=== PATIENT | female | born 1940 | race Caucasian/White ===

== ENCOUNTER 2020-05-11 11:29 | Emergency (ER) | payer MEDICARE, SELFPAY ==
[2020-05-11] VITALS (11 sets, daily range): BP systolic 125–159; BP diastolic 66–91; PULSE 71–163; RESP 12–28; O2SAT 99–100
--- NOTE | ~2020-05-11 | XR_ITS ---
EXAMINATION: XR chest 2V DATE: 05/11/2020 12:56 INDICATION: Palpitations TECHNIQUE: PA and lateral views of the chest were obtained. COMPARISON: None FINDINGS: The lungs are well-expanded and clear with no focal airspace opacities, pulmonary edema, pleural effu myke or pneumothorax. The cardiomediastinal silhouette is normal. Mild thoracic levocurvature with mi ld spondylosis. IMPRESSION: 1. No acute cardiopulmonary disease. Reviewed, dictated and finalized at location A. LLITE DISH TECHNICIAN
--- NOTE | 2020-05-11 11:32 | ED.ARRPALP ---
HPI - Arrhythmia/Palpitations General Chief Complaint: Arrhythmia/Palpitations Stated Complaint: rapid heartbeat Time Seen by Provider: 05/11/20 11:32 Source: patient Mode of arrival: wheelchair Limitations: no limitations History of Present Illness HPI narrative: Patient is a 79-year-old female who presents for evaluation of palpitations. Patient states palpitations started approximately 40 minutes prior to arrival. She was in the garage coming into the hospital he began. 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 She denies any chest pain, shortness of breath. No recent illnesses. No nausea or vomiting. Related Data Home Medications Medication Instructions Recorded Confirmed fluticasone propionate INTRANASAL 05/11/20 levothyroxine 05/11/20 simvastatin mg 05/11/20 Allergies Allergy/AdvReac Type Severity Reaction Status Date / Time erythromycin base Allergy Mild Abdominal Verified 05/11/20 11:37 Pain Review of Systems Review of Systems: Narrative: CONSTITUTIONAL: Denies fever, chills, or sweats. ENT: Denies rhinorrhea, congestion, sore throat, or otalgia. CARDIOVASCULAR: Denies chest pain, reports palpitations, no leg edema RESPIRATORY: Denies cough or dyspnea. GASTROINTESTINAL: Denies abdominal pain, nausea, vomiting, or diarrhea. GENITOURINARY: Denies dysuria or hematuria. SKIN: Denies rash or itching. MUSCULOSKELETAL: Denies back pain, joint pain, or myalgia. NEUROLOGIC: Denies headache, numbness, or weakness. [facility] Past Medical History Medical History Ataxia Hyperlipidemia Hypothyroidism Surgical History Surgical History (Updated 05/11/20 @ 12:03 by Rabia Valente MD) H/O: hysterectomy Social History Social History Gender identity (if verbalized by the patient): Female Exam Narrative: Exam Narrative: GENERAL: Awake, alert, conversant HEAD: Normocephalic, atraumatic. EYES: PERRLA and EOMI. ENT: Nares clear, no rhinorrhea or epistaxis. Mucous membranes moist. NECK: Supple. CHEST: No respiratory distress, breathing even and non labored HEART: Tachycardic rate, regular rhythm ABDOMEN:Non distended, non tender EXTREMITIES: Normal range of motion. No edema. SKIN: Warm, dry, no rash. NEURO:No focal deficits. Alert and oriented x3 Course Vital Signs Vital signs: Vital Signs Pulse Rate 157 H 05/11/20 11:34 Respiratory Rate 22 H 05/11/20 11:34 Blood Pressure 159/91 H 05/11/20 11:34 Pulse Oximetry 99 05/11/20 11:34 Pulse Rate 74 05/11/20 13:16 Respiratory Rate 14 05/11/20 13:16 Blood Pressure 125/66 05/11/20 13:16 Pulse Oximetry 100 05/11/20 13:16 MDM - Arrhythmia/Palpitations MDM Narrative Medical decision making narrative: Patient presented to the emergency department for evaluation of palpitations. At the time of assessment, patient is awake, alert and oriented with a narrow complex tachycardia, concerning for either SVT versus atrial flutter however rate is not truly fast enough to be consistent with typical SVT. No evidence of irregularly irregular rate, making atrial fibrillation less likely. Not consistent with sinus tachycardia. Patient converted prior to any medication to be administered to her. She had no concurrent chest pain or shortness of breath. No hypotension. No electrolyte derangement. No evidence of hypo or hyperthyroidism. No recurrent palpitations or arrhythmias in the ER. Spoke with on-call video production coordinator who recommended patient be placed on a daily aspirin as well as metoprolol succinate once daily with close follow-up in their office. Differential Diagnosis Differential diagnosis: Likely palpitations, artial fibrillation, artial flutter, ventricular premature beats, supraventricular tachycardia and ventricular tachycardia Medical Records Attestation: I reviewed the patient's medica
--- NOTE | 2020-05-11 12:11 | ECG_ITS ---
Measurements Intervals [place] Rate: 87 P: 86 IN: 146 QRS: 83 QRSD: 101 T: 45 QT: 352 QTc: 424 Interpretive Statements SINUS RHYTHM INCOMPLETE RIGHT BUNDLE BRANCH BLOCK BORDERLINE ECG Electronically Signed On 05-11-2020 16:34:11 EDUCATIONAL CONSULTANT by Gary Lowery D.O.
--- NOTE | 2020-05-11 12:11 | ECG_ITS ---
Measurements Intervals [place] Rate: 156 P: CO: 0 QRS: 78 QRSD: 107 T: -3 QT: 263 QTc: 424 Interpretive Statements ATRIAL FLUTTER/TACHYCARDIA WITH RAPID VENTRICULAR RESPONSE INCOMPLETE RIGHT BUNDLE BRANCH BLOCK BORDERLINE ST-T WAVE ABNORMALITY- ANTEROLAT/INF LEADS ABNORMAL ECG Electronically Signed On 05-11-2020 16:32:51 AMMONIA SOLUTION PREPARER by Gary Lowery D.O.
[2020-05-11 12:19] LABS: Basophils Absolute Auto 0.1 K/mm3 (0.0-0.1); Eosinophils Absolute Auto 0.2 K/mm3 (0-0.3); Eosinophils Percent Auto 3.2 % (0-4.4); Hematocrit 39.5 % (37.0-47.0); Hemoglobin 13.1 g/dL (12.0-15.0); Immature Granulocyte Absolute 0.01 K/mm3 (0.00-0.031); Immature Granulocyte Percent A 0.1 % (0-0.5); Lymphocytes Absolute Auto 2.26 K/mm3 (0.9-3.2); Lymphocytes Percent Auto 32.8 % (18.3-44.2); Mean Corpuscular HGB Conc 33.2 g/dl (32-36); Mean Corpuscular Volume 93.6 fl (80-100); Mean Platelet Volume 10.6 fl (7.4-10.4); Monocytes Absolute Auto 0.7 K/mm3 (0.1-0.6); Monocytes Percent Auto 9.4 % (2.6-8.5); Neutrophils Absolute Auto 3.7 K/mm3 (1.3-6.7); Neutrophils Percent Auto 53.5 % (45.5-73.1); Platelet Count Result 300 k/mm3 (150-375); Red Blood Count 4.22 M/mm3 (4.2-5.4); Red Cell Distribution Width 12.6 % (11.5-14.5); White Blood Count 6.9 K/mm3 (4.5-10.0)
[2020-05-11] MEDS: SODIUM CHLORIDE 0.9% IV 1,000 ML 999 ML IV CONT (12:26)
--- NOTE | 2020-05-11 12:30 | PC.NURSE ---
IVF initiated and preparing to give the patient cardiazem when note the patient has converted to NSR vis monitor. Dr. Valente aware, holding cardiazem.
[2020-05-11 12:34] LABS: Alanine Aminotransferase 24 U/L (4-35); Albumin Level 4.5 g/dL (3.5-5.1); Alkaline Phosphatase 107 U/L (38-126); Anion Gap 9 mmol/L (8-16); Aspartate Amino Transferase 34 U/L (14-36); Bilirubin,Total 0.6 mg/dL (0.2-1.3); Blood Urea Nitrogen 20 mg/dL (7-17); Carbon Dioxide 30 mmol/L (22-30); Chloride 102 mmol/L (98-107); Estimated CRCL calculation 43 ml/min; Estimated Glomerular Filt Rate > 60; Glucose 113 mg/dL (65-105); Potassium 3.8 mmol/L (3.4-5.0); Sodium 141 mmol/L (137-145)
[2020-05-11 13:02] LABS: Thyroid Stimulating Hormone 0.796 uIU/mL (0.465-4.680)
--- NOTE | 2020-05-11 14:37 | PC.NURSE ---
Pt ambulatory to exit with own walker and assisted into car.
== END 2020-05-11 14:40 | disposition home or self-care (01) ==
PROVIDERS: Emergency Provider Emergency Medicine; PCP Internal Medicine Endocrinology, Diabetes & Metabolism
DX: R00.2 Palpitations (principal); E78.5 Hyperlipidemia, unspecified; E03.9 Hypothyroidism, unspecified; I45.10 Unspecified right bundle-branch block; I48.92 Unspecified atrial flutter; R00.0 Tachycardia, unspecified
CPT/HCPCS: 36415; 71046; 80053; 84443; 85025; 93005; 99283; J0153; J7030

== ENCOUNTER 2020-09-22 11:22 | Outpatient (CLI) | payer MEDICARE, SELFPAY ==
--- NOTE | ~2020-09-22 | XR_ITS ---
EXAMINATION: XR knee RT 3V DATE: 09/22/2020 11:42 INDICATION: Right knee pain. TECHNIQUE: 3 views of right knee were obtained. COMPARISON: None. FINDINGS: Bone alignment is normal. No fracture. There is mild osteoarthritis of lateral and patellof emoral compartments characterized by tiny marginal osteophytes. There is a small knee joint effusion. IMPRESSION: 1. Mild right knee osteoarthritis. 2. Small right knee joint effusion. Reviewed, dictated and finalized at location B.
== END 2020-09-22 11:23 | disposition home or self-care (01) ==
DX: M17.11 Unilateral primary osteoarthritis, right knee (principal); M25.461 Effusion, right knee
CPT/HCPCS: 73562

== ENCOUNTER 2025-04-18 15:36 | Inpatient (IN) | payer MEDICARE, SELFPAY ==
--- NOTE | ~2025-04-18 | XR_ITS ---
EXAMINATION: XR abdomen/kub 1V, 04/19/2025 11:20 [employer] MANAGER HISTORY: Ileus vs SBO COMPARISON: No comparisons available. Technique: 3 view. Findings: There are dilated loops of small bowel the largest measuring 4 cm with diminished. Throughout the large bowel. No free air. No abnormal calcifications No acute osseous abnormality. Impression: 1. Ileus versus small bowel obstruction. Small bowel obstruction is favored. Reviewed, dictated and finalized at location P. R CANE FARM MANAGER Impression: 1. Ileus versus small bowel obstruction. Small bowel obstruction is favored.
--- NOTE | ~2025-04-18 | CT_ITS ---
EXAMINATION: CT abdomen pelvis w con DATE: 04/18/2025 18:33 INDICATION: Abdominal pain, nausea and vomiting. TECHNIQUE: Computed tomography (CT) of the abdomen and pelvis was performed 100 cc intravenous contrast. Automated exposure control and iterative reconstruction technique were employed. The dose-length product was 199.52 mGy-cm. COMPARISON: None. FINDINGS: Lung bases do not show acute findings. No focal lesions of liver and spleen. The gallbladder shows no acute findings. Pancreas shows no acute findings. Kidneys do not show calculi are obstruction. Moderate calcific atherosclerotic changes of superior mesenteric artery. Dilated loops of small bowel are noted measuring 3.5 cm in diameter with fluid levels suggestive of moderate mechanical small bowel obstruction. Thickening of the wall of the cecum and proximal colon are noted. Appendix is not distinctly visible. No free fluid or free air. No evidence of herniations. Distended urinary bladder. IMPRESSION: 1. Moderately dilated loops of small bowel suggesting evidence of mechanical small bowel obstruction. 2. Mild thickening of the wall of the proximal colon and cecum of indeterminate nature. Correlation with colonoscopy is suggested. 3. Distended urinary bladder. Reviewed, dictated and finalized at location T. O COORDINATOR IMPRESSION: 1. Moderately dilated loops of small bowel suggesting evidence of mechanical sm all bowel obstruction. 2. Mild thickening of the wall of the proximal colon and cecum of indeterminate nature. Correlation with colonoscopy is suggested. 3. Distended urinary bladder.
[2025-04-18 16:05] VITALS: BP 117/67; PULSE 78; RESP 16; TEMP 36.6; O2SAT 96
--- NOTE | 2025-04-18 17:27 | ED_ITS ---
HPI - General Adult General Chief complaint: Nausea/Vomiting/Diarrhea <LAURA Watson - Last Filed: 04/18/25 17:32> Stated complaint: diarrhea sin Friday, lower abd mass <LAURA Watson - Last Filed: 04/18/25 17:32> Time Seen by Provider: 04/18/25 18:59 <LAURA Watson - Last Filed: 04/18/25 17:32> Focused HPI: 84 year old female presenting with concerns for vomiting and diarrhea since Friday as well as intermittent abdominal pain. Reports ongoing issues with constipation. Denies fevers/chills, chest pain/shortness of breath, urinary concerns, melena/hematochezia, or hematemesis. GENERAL: No acute distress. HEAD: Normocephalic, atraumatic. CHEST: Clear to auscultation. ?No respiratory distress. HEART: Regular rate and rhythm.? NEURO: ?Alert and oriented x3. Patient screened in triage and initial orders placed.? ?Additional care and disposition to be based upon?diagnostic testing and treatment. <LAURA Watson - Last Filed: 04/18/25 17:32> History of Present Illness HPI narrative: agree with HPI <Alicia Cameron MD - Last Filed: 04/18/25 21:11> Related Data Home medications: Home Medications ?Medication ?Instructions ?Recorded ?Confirmed ?Last Taken ?Type fluticasone propionate 50 intranasal 05/11/20 Unknown History mcg/actuation nasal spray,suspension levothyroxine 88 mcg tablet 05/11/20 Unknown History simvastatin 40 mg tablet mg 05/11/20 Unknown History <LAURA Watson - Last Filed: 04/18/25 17:32> Allergies/adverse reactions: Allergies Allergy/AdvReac Type Severity Reaction Status Date / Time erythromycin base Allergy Mild Abdominal Verified 05/11/20 11:37 Pain <LAURA Watson - Last Filed: 04/18/25 17:32> Review of Systems 2 Review of Systems: All systems reviewed & are unremarkable except as noted in HPI and below <Alicia Cameron MD - Last Filed: 04/18/25 21:11> PMF[facility] Past Medical History Medical History: Medical History Ataxia Hyperlipidemia Hypothyroidism <LAURA Watson - Last Filed: 04/18/25 17:32> Surgical History Surgical History: Surgical History (Updated 05/11/20 @ 12:03 by Rabia Valente MD) H/O: hysterectomy <LAURA Watson - Last Filed: 04/18/25 17:32> Social History Social History: Social History Gender identity (if verbalized by the patient): Female <LAURA Watson - Last Filed: 04/18/25 17:32> Exam 2 Narrative: EXAMINATION OF ORGAN SYSTEMS/BODY AREAS: Constitutional: Vital signs per nursing GENERAL:[No acute distress, non-toxic appearing.] HEAD: Normal with no signs of head trauma. EYES: EOMI, conjunctiva normal ENT: Hearing grossly intact LUNGS: Nonlabored breathing. HEART: [Regular rate and rhythm] ABD: [Soft], [nontender to palpation] EXT: Normal range of motion SKIN: [No rashes or lesions.] NEURO: [Alert. No gross focal sensory or strength deficits.] PSYCH: Normal affect <Alicia Cameron MD - Last Filed: 04/18/25 21:11> Course Vital Signs Vital signs: Vital Signs Temperature 97.9 F 04/18/25 16:05 Pulse Rate 78 04/18/25 16:05 Respiratory Rate 16 04/18/25 16:05 Blood Pressure 117/67 04/18/25 16:05 Pulse Oximetry 96 04/18/25 16:05 Oxygen Delivery Room Air 04/18/25 16:05 Temperature 97.8 F 04/18/25 19:53 Pulse Rate 66 04/18/25 20:59 Respiratory Rate 16 04/18/25 20:59 Blood Pressure 122/69 04/18/25 20:59 Pulse Oximetry 100 04/18/25 20:59 Oxygen Delivery Room Air 04/18/25 19:47 <LAURA Watson - Last Filed: 04/18/25 17:32> Vital Signs Temperature 97.9 F 04/18/25 16:05 Pulse Rate 78 04/18/25 16:05 Respiratory Rate 16 04/18/25 16:05 Blood Pressure 117/67 04/18/25 16:05 Pulse Oximetry 96 04/18/25 16:05 Oxygen Delivery Room Air 04/18/25 16:05 Temperature 97.8 F 04/18/25 19:53 Pulse Rate 66 04/18/25 20:59 Respiratory Rate 16 04/18/25 20:59 Blood Pressure 122/69 04/18/25 20:59 Pulse Oximetry 100 04/18/25 20:59 Oxygen Delivery Room Air 04/18/25 19:47 <Alicia Cameron MD - Last Filed: 04/18/25 21:11> [facility] MDM Narrative Medical decision making narrative: Electronic medical record was reviewed. Patient presented to the ED with complaint of [abdominal pain and vomiting with intermittent constipation and diarrhea]. Vitals [were within acceptable limits]. Physical exam revealed soft abdomen without significant tenderness. [IV access was established by nursing staff]. CBC, BMP, lipase, LFTs, bilirubin and alk phos were obtained. Labs were pertinent for labs within baseline limits for patient. [Decision was made to obtain a CT-abdomen to evaluate for acute abdominal process. CT-abdomen per radiology interpretation is concerning for possible small bowel obstruction.] Discussed findings with the patient, I suspect that the diarrhea may be from overflow, she started on fluids, I discussed this with Dr. Burton who agrees to consult, discussed with hospitalist for admission. Fluids started. <Alicia Cameron MD - Last Filed: 04/18/25 21:11> Differential Diagnosis Differential Diagnosis: Diarrhea, constipation, electrolyte abnormality, etc. <Alicia Cameron MD - Last Filed: 04/18/25 21:11> Lab Data Result diagrams: 04/18/25 18:01 04/18/25 18:01 <LAURA Watson - Last Filed: 04/18/25 17:32> Labs: Lab Results 04/18/25 04/18/25 Range/Units 18:01 18:01 WBC 5.8 (4.5-10.0) K/mm3 RBC 3.73 L (4.2-5.4) M/mm3 Hgb 10.6 L (12.0-15.0) g/dL Hct 32.8 L (37.0-47.0) % MCV 87.9 (80-100) fl MCH 28.4 (26-34) pg MCHC 32.3 (32-36) g/dl RDW 15.0 H (11.5-14.5) % Plt Count 347 (150-375) k/mm3 MPV 9.3 (7.4-10.4) fl Immature Gran % (Auto) 0.2 (0-0.5) % Neut % (Auto) 67.3 (45.5-73.1) % Lymph % (Auto) 16.4 L (18.3-44.2) % [place] % (Auto) 14.0 H (2.6-8.5) % Eos % (Auto) 1.4 (0-4.4) % Baso % (Auto) 0.7 (0.2-1.2) % Lymph # (Auto) 0.96 (0.9-3.2) K/mm3 [place] # (Auto) 0.8 H (0.1-0.6) K/mm3 Eos # (Auto) 0.1 (0-0.3) K/mm3 Baso # (Auto) 0.0 (0.0-0.1) K/mm3 Abs Immat Gran (auto) 0.01 (0.00-0.031) K/mm3 Absolute Neuts (auto) 3.9 (1.3-6.7) K/mm3 Absolute Nucleated RBC 0.000 (0.0-0.012) K/mm3 Nucleated RBC % 0.0 (0.0-0.2) % Sodium 134 L (137-145) mmol/L Potassium 3.7 (3.4-5.0) mmol/L Chloride 102 (98-107) mmol/L Carbon Dioxide 29 (22-30) mmol/L Anion Gap 3 L (4-12) mmol/L BUN 18 H (7-17) mg/dL Creatinine 0.81 (0.7-1.0) mg/dL Estim Creat Clear Calc 41 ml/min Estimated GFR > 60 (59 - ) Glucose 84 (65-110) mg/dL Lactic Acid 0.9 (0.7-2.0) mmol/L Calcium 9.4 (8.4-10.2) mg/dL Magnesium 2.2 (1.6-2.3) mg/dL Total Bilirubin 0.7 (0.2-1.3) mg/dL AST 34 (14-36) U/L ALT 24 (6-35) U/L Alkaline Phosphatase 98 (38-126) U/L Total Protein 7.1 (6.3-8.2) g/dL Albumin 4.2 (3.5-5.1) g/dL Lipase 37 Cancelled (23-300) U/L <LAURA Watson - Last Filed: 04/18/25 17:32> Lab Results 04/18/25 04/18/25 Range/Units 18:01 18:01 WBC 5.8 (4.5-10.0) K/mm3 RBC 3.73 L (4.2-5.4) M/mm3 Hgb 10.6 L (12.0-15.0) g/dL Hct 32.8 L (37.0-47.0) % MCV 87.9 (80-100) fl MCH 28.4 (26-34) pg MCHC 32.3 (32-36) g/dl RDW 15.0 H (11.5-14.5) % Plt Count 347 (150-375) k/mm3 MPV 9.3 (7.4-10.4) fl Immature Gran % (Auto) 0.2 (0-0.5) % Neut % (Auto) 67.3 (45.5-73.1) % Lymph % (Auto) 16.4 L (18.3-44.2) % [place] % (Auto) 14.0 H (2.6-8.5) % Eos % (Auto) 1.4 (0-4.4) % Baso % (Auto) 0.7 (0.2-1.2) % Lymph # (Auto) 0.96 (0.9-3.2) K/mm3 [place] # (Auto) 0.8 H (0.1-0.6) K/mm3 Eos # (Auto) 0.1 (0-0.3) K/mm3 Baso # (Auto) 0.0 (0.0-0.1) K/mm3 Abs Immat Gran (auto) 0.01 (0.00-0.031) K/mm3 Absolute Neuts (auto) 3.9 (1.3-6.7) K/mm3 Absolute Nucleated RBC 0.000 (0.0-0.012) K/mm3 Nucleated RBC % 0.0 (0.0-0.2) % Sodium 134 L (137-145) mmol/L Potassium 3.7 (3.4-5.0) mmol/L Chloride 102 (98-107) mmol/L Carbon Dioxide 29 (22-30) mmol/L Anion Gap 3 L (4-12) mmol/L BUN 18 H (7-17) mg/dL Creatinine 0.81 (0.7-1.0) mg/dL Estim Creat Clear Calc 41 ml/min Estimated GFR > 60 (59 - ) Glucose 84 (65-110) mg/dL Lactic Acid 0.9 (0.7-2.0) mmol/L Calcium 9.4 (8.4-10.2) mg/dL Magnesium 2.2 (1.6-2.3) mg/dL Total Bilirubin 0.7 (0.2-1.3) mg/dL AST 34 (14-36) U/L ALT 24 (6-35) U/L Alkaline Phosphatase 98 (38-126) U/L Total Protein 7.1 (6.3-8.2) g/dL Albumin 4.2 (3.5-5.1) g/dL Lipase 37 Cancelled (23-300) U/L <Alicia Cameron MD - Last Filed: 04/18/25 21:11> Imaging Data Radiologist's impression: ITS Impressions Abdomen/Pelvis CT 04/18/25 18:36 IMPRESSION: 1. Moderately dilated loops of small bowel suggesting evidence of mechanical small bowel obstruction. 2. Mild thickening of the wall of the proximal colon and cecum of indeterminate nature. Correlation with colonoscopy is suggested. 3. Distended urinary bladder. <LAURA Watson - Last Filed: 04/18/25 17:32> ITS Impressions Abdomen/Pelvis CT 04/18/25 18:36 IMPRESSION: 1. Moderately dilated loops of small bowel suggesting evidence of mechanical small bowel obstruction. 2. Mild thickening of the wall of the proximal colon and cecum of indeterminate nature. Correlation with colonoscopy is suggested. 3. Distended urinary bladder. <Alicia Cameron MD - Last Filed: 04/18/25 21:11> Discharge Plan Discharge Clinical Impression: SBO (small bowel obstruction) <LAURA Watson - Last Filed: 04/18/25 17:32> Patient Disposition: Still a Patient <LAURA Watson - Last Filed: 04/18/25 17:32> Condition: Stable <LAURA Watson - Last Filed: 04/18/25 17:32>
[2025-04-18 17:55] VITALS: BP 123/62; PULSE 90; RESP 15; O2SAT 100
[2025-04-18 18:09] LABS: Hematocrit 32.8 % (37.0-47.0); Hemoglobin 10.6 g/dL (12.0-15.0); Immature Granulocyte Percent A 0.2 % (0-0.5); Lymphocytes Absolute Auto 0.96 K/mm3 (0.9-3.2); Mean Corpuscular HGB Conc 32.3 g/dl (32-36); Mean Corpuscular Hemoglobin 28.4 pg (26-34); Mean Corpuscular Volume 87.9 fl (80-100); Nucleated Red Blood Cells Absolute Auto 0.000 K/mm3 (0.0-0.012); Nucleated Red Blood Cells Perc 0.0 % (0.0-0.2); Platelet Count Result 347 k/mm3 (150-375); Red Blood Count 3.73 M/mm3 (4.2-5.4); White Blood Count 5.8 K/mm3 (4.5-10.0)
[2025-04-18 18:20] LABS: Alanine Aminotransferase 24 U/L (6-35); Albumin Level 4.2 g/dL (3.5-5.1); Alkaline Phosphatase 98 U/L (38-126); Anion Gap 3 mmol/L (4-12); Aspartate Amino Transferase 34 U/L (14-36); Bilirubin,Total 0.7 mg/dL (0.2-1.3); Blood Urea Nitrogen 18 mg/dL (7-17); Calcium 9.4 mg/dL (8.4-10.2); Carbon Dioxide 29 mmol/L (22-30); Chloride 102 mmol/L (98-107); Estimated CRCL calculation 41 ml/min; Estimated Glomerular Filt Rate > 60; Glucose 84 mg/dL (65-110); Lipase 37 U/L (23-300); Magnesium 2.2 mg/dL (1.6-2.3); Potassium 3.7 mmol/L (3.4-5.0); Sodium 134 mmol/L (137-145); Total Protein 7.1 g/dL (6.3-8.2)
[2025-04-18] MEDS: LACTATED RINGERS 1,000 ML 999 ML IV CONT (19:37)
[2025-04-18 19:47] VITALS: BP 131/67; PULSE 73; RESP 14; O2SAT 100
[2025-04-18 19:53] VITALS: TEMP 36.6
[2025-04-18 20:06] LABS: Add Urine Microscopic? YES; Appearance Urine Clear (Clear); Glucose Urine UA Negative (Negative); Leukocyte Esterase Ur Trace LEU/UL (Negative); Need Manual Microscopic Reviewed; Nitrate Urine Negative (Negative); Non Pathogenic Casts 0-2; Specific Grav Ur 1.023 (1.001-1.035)
[2025-04-18 20:59] VITALS: BP 122/69; PULSE 66; RESP 16; O2SAT 100
--- NOTE | 2025-04-18 21:02 | WPCEDHO ---
ED Hand Off Checklist All vitals saved: YES IV Site documented: YES All med administrations documented: YES Triage Note Triage Note patient states she was 04/18/25 19:47 constipated in jan and instructed by PCP to take colace and mirlaxx until she passed BM. patient states she took colace and mirlaxx on and off since. Pt was instructed to take it everyday for the last week. patient began vomiting and having diarrhea since Sunday 04/15. pt states she has a decreased appetite. Allergies erythromycin base Allergy (Mild, Verified 05/11/20 11:37) Abdominal Pain Administered/Completed Medications Discontinued Medications Lactated Ringer's (Lr - Lactated Ringers Iv) 1,000 mls @ 999 mls/hr IV CONT .Q1H1M STA Stop: 04/18/25 20:01 Last Admin: 04/18/25 19:37 Dose: 999 mls/hr Documented By: ZAHIDA Interventions/Assessments IV / Saline Lock, Insert Start: 04/18/25 16:05 Freq: Status: Active Protocol: Document 04/18/25 18:01 COLBY (Rec: 04/18/25 18:01 COLBY [id number]) IV Assessment Peripheral Access Left Forearm IV Catheter Access Initiated IV Insertion Date 04/18/25 IV Insertion Time 18:01 Catheter Gauge 20 IV Insertion 1 Attempts Ultrasound Used for No Placement IV Site Assessment WNL IV Care and WNL Maintenance PA: Gastrointestinal Assessment Start: 04/18/25 16:05 Freq: Status: Active Protocol: Document 04/18/25 19:47 ZAHIDA (Rec: 04/18/25 19:53 ZAHIDA [id number]) GI Assessment Gastrointestinal Appetite Changes,Bloating,Constipation,Diarrhea Symptoms Nausea/Vomiting Assessment Emesis Frequency Subsided Emesis Description Undigested Food/Medications Last Vital Signs Temperature 97.8 F 04/18/25 19:53 Pulse Rate 66 04/18/25 20:59 Respiratory Rate 16 04/18/25 20:59 Pulse Oximetry 100 04/18/25 20:59 Blood Pressure 122/69 04/18/25 20:59 Blood Pressure Mean 86 04/18/25 20:59 Blood Pressure Position Sitting 04/18/25 20:59 Oxygen Delivery Room Air 04/18/25 19:47 Weight 56 kg 04/18/25 16:05 Last Result - Abnormals Only RBC 3.73 M/mm3 (4.2-5.4) L 04/18/25 18:01 Hgb 10.6 g/dL (12.0-15.0) L 04/18/25 18:01 Hct 32.8 % (37.0-47.0) L 04/18/25 18:01 RDW 15.0 % (11.5-14.5) H 04/18/25 18:01 Lymph % (Auto) 16.4 % (18.3-44.2) L 04/18/25 18:01 [place] % (Auto) 14.0 % (2.6-8.5) H 04/18/25 18:01 [place] # (Auto) 0.8 K/mm3 (0.1-0.6) H 04/18/25 18:01 Sodium 134 mmol/L (137-145) L 04/18/25 18:01 Anion Gap 3 mmol/L (4-12) L 04/18/25 18:01 BUN 18 mg/dL (7-17) H 04/18/25 18:01 Urine Ketones Trace mg/dL (Negative) H 04/18/25 19:30 Leukocyte Esterase Rfl Trace CHRISTOPHER/UL (Negative) H 04/18/25 19:30 Most Recent Suicide Severity Rating Suicide Severity Rating NO RISK INDICATED 04/18/25 19:47
[2025-04-18 21:17] VITALS: BMI 18.9
[2025-04-18 22:00] VITALS: BP 126/75; PULSE 70; RESP 20; TEMP 36.8; O2SAT 99
[2025-04-18] MEDS: SODIUM CHLORIDE 0.9% IV 1,000 ML 75 ML IV CONT (22:16)
--- NOTE | 2025-04-18 23:43 | P.HP_ITS ---
H&P: HPI History of Present Illness Date/Time: 04/18/25 23:05 Chief Complaint: Diarrhea and abdominal pain for 4 days Narrative: 84-year-old female with a past medical history of hypothyroidism, hyperlipidemia, hereditary ataxia and prior hysterectomy with bilateral salpingo oophorectomy who presented to the ER with abdominal pain, diarrhea and nausea for 4 days. Patient reports that she has had intermittent constipation since January 2025. She reports that she has ataxia and has developed worsening ever ataxia to the point that she is now dependent upon the wheelchair so she does not fall. With the decrease in activity her constipation as worsened. She has been taking stool softeners including MiraLax intermittently for symptoms. Any time the constipation resolved so she can cyst stop the MiraLax. She developed constipation again a week ago and started taking the MiraLax again on Friday. Shortly after taking the MiraLax she a half of a bagel and then began having right lower quadrant abdominal pain and vomiting. She reports that the abdominal pain was intermittent and at times severe and cramping in nature. She felt like pain would move across her abdomen. She did have several episodes of vomiting that day. Since that time she also developed diarrhea where she was actually incontinent of stool. She reported that any time she felt like she needed to go she would start dribbling stool before she could even get up to go to the bathroom. She usually does not have difficulty with bowel or bladder control. She denies any associated fevers or chills. She reports that the vomiting resolved after the 1st day. She is still had occasional nausea but is been able to tolerate chicken noodle soup and toast. She did call her primary care provider who evaluated her earlier today and recommended she come to the ER for evaluation. In the ER CT was performed which demonstrated small bowel obstruction and evidence of a distended bladder. She admits that she was drinking a large amount of water per direction from her primary care provider. She denies any sensation of incomplete bladder emptying. She denies any dysuria or increased urinary frequency. The patient provides the majority of history and is a good historian. She sees a neurologist in [place] regarding her ataxia. Review of Systems 2 Review of Systems: 12 systems were reviewed with pertinent positives and negatives per HPI. Except as documented in the HPI, all other systems were reviewed and are negative. [facility] Past Medical History Medical History (Updated 04/19/25 @ 00:05 by Katiana Burgos DO) Mitral valve prolapse Allergic rhinitis Hereditary ataxia Hypothyroidism Hyperlipidemia Surgical History Surgical History (Updated 04/18/25 @ 23:53 by Katiana Burgos DO) Status post cataract extraction of both eyes with insertion of intraocular lens History of total abdominal hysterectomy and bilateral salpingo-oophorectomy (1990) Uterine fibroid Family History Family History Father Acute myocardial infarction Social History Social History (Updated 04/18/25 @ 23:55 by Katiana Burgos DO) Social History: Patient is . She lives in [place] [facility] her lives in [facility]. They have been for 52 years and have 1 son. She is a lifelong nonsmoker and does not drink alcohol or use illicit substances. She requires wheelchair for mobility. 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 Code status: DNR/DNI per patient request Healthcare power of estate attorney: Jhony (son) Smoking status: Never smoker Alcohol intake: never Substance use: never Lack of Transportation: No Lack of Food: Never True Current Housing: Decline to Answer Concerned About Future Housing: No Difficulty Paying Gas/Electric Bills: No Difficulty Paying for Meds: No Currently Unemployed: No Education: High School Diploma/GED Difficulty w/ Childcare or Family Care: No Gender identity (if verbalized by the patient): Female Spiritual care concerns: No Meds Home Medications and Allergies Home Medications ?Medication ?Instructions ?Recorded ?Confirmed ?Type fluticasone propionate 50 1 spray intranasal DAILY 04/18/25 History mcg/actuation nasal spray,suspension simvastatin 40 mg tablet 40 mg PO QPM 05/11/20 History aspirin 81 mg tablet,delayed 81 mg PO DAILY 04/18/25 1 06/19/24 History release (Adult Low Dose Aspirin) levothyroxine 75 mcg tablet 75 mcg PO DAILY 04/18/25 1 06/19/24 History Allergies Allergy/AdvReac Type Severity Reaction Status Date / Time erythromycin base Allergy Mild Abdominal Verified 04/18/25 21:27 Pain Vital Signs Vital Signs - 24 hr 04/18/25 16:05 04/18/25 17:55 04/18/25 19:47 Temperature 97.9 F Pulse Rate 78 90 73 Respiratory Rate 16 15 14 Blood Pressure 117/67 123/62 131/67 Pulse Oximetry 96 100 100 Oxygen Delivery Room Air Room Air 04/18/25 19:53 04/18/25 20:59 04/18/25 22:00 Temperature 97.8 F 98.3 F Pulse Rate 66 70 Respiratory Rate 16 20 Blood Pressure 122/69 126/75 Pulse Oximetry 100 99 Oxygen Delivery Exam 2 Narrative: Weight 56.5 kg BMI 18.9 Const: Other: No acute distress, well-developed well-nourished, appears stated age HENMT: Other: Mucous membranes are moist, no oral pharyngeal erythema, fair dentition Eyes: Other: Pupils are equal and reactive with bilateral lens implants noted, positive conjunctival pallor, no scleral icterus Neck: Other: No JVD, no lymphadenopathy Resp: Other: Lungs are clear to auscultation bilaterally, no increased work of breathing Cardio: Other: Regular rate, regular rhythm, 2+ bilateral radial pedal pulses GI: Other: Soft, nontender, nondistended, positive bowel sounds Skin: Other: Mild pallor, non jaundice Neuro: Other: Alert oriented x4, speech is clear, no facial asymmetry, no localizing neurologic deficits noted during the course of conversation Extrem: Other: No clubbing, cyanosis or edema, moves all extremities equally Psych: Other: Appropriate mood and affect, pleasant and cooperative, judgment and insight intact Results Labs Labs: Laboratory Tests 04/18/25 18:01 04/18/25 18:01 04/18/25 04/18/25 04/18/25 18:01 18:01 19:30 WBC 5.8 RBC 3.73 L Hgb 10.6 L Hct 32.8 L MCV 87.9 MCH 28.4 MCHC 32.3 RDW 15.0 H Plt Count 347 MPV 9.3 Immature Gran % (Auto) 0.2 Neut % (Auto) 67.3 Lymph % (Auto) 16.4 L [place] % (Auto) 14.0 H Eos % (Auto) 1.4 Baso % (Auto) 0.7 Lymph # (Auto) 0.96 [place] # (Auto) 0.8 H Eos # (Auto) 0.1 Baso # (Auto) 0.0 Abs Immat Gran (auto) 0.01 Absolute Neuts (auto) 3.9 Absolute Nucleated RBC 0.000 Nucleated RBC % 0.0 Sodium 134 L Potassium 3.7 Chloride 102 Carbon Dioxide 29 Anion Gap 3 L BUN 18 H Creatinine 0.81 Estim Creat Clear Calc 41 Estimated GFR > 60 Glucose 84 Lactic Acid 0.9 Calcium 9.4 Magnesium 2.2 Total Bilirubin 0.7 AST 34 ALT 24 Alkaline Phosphatase 98 Total Protein 7.1 Albumin 4.2 Lipase 37 Cancelled Urine Color Yellow Urine Appearance Clear Urine pH 6.5 Ur Specific [place] 1.023 Urine Protein Negative Urine Glucose (UA) Negative Urine Ketones Trace H Ur Blood (Man) Negative Urine Nitrate Negative Urine Bilirubin Negative Urine Urobilinogen 0.2 Add Ur Microanalysis Reviewed Leukocyte Esterase Rfl Trace H Urine RBC 0-2 Urine WBC 0-5 Ur Squamous Epith Cells None seen Urine Bacteria None seen Urine Casts 0-2 Impressions Abdomen/Pelvis CT 04/18/25 18:36 IMPRESSION: 1. Moderately dilated loops of small bowel suggesting evidence of mechanical small bowel obstruction. 2. Mild thickening of the wall of the proximal colon and cecum of indeterminate nature. Correlation with colonoscopy is suggested. 3. Distended urinary bladder. Assessment and Plan Assessment and plan (1) SBO (small bowel obstruction): Code(s): K56.609 - Unspecified intestinal obstruction, unspecified as to partial versus complete obstruction Status: Acute (2) Hypothyroidism: Qualifiers: Hypothyroidism type: unspecified Qualified Code(s): E03.9 - Hypothyroidism, unspecified Code(s): E03.9 - Hypothyroidism, unspecified Status: Acute (3) Dehydration: Code(s): E86.0 - Dehydration Status: Acute (4) Distended bladder: Code(s): N32.89 - Other specified disorders of bladder Status: Acute (5) Anemia: Qualifiers: Anemia type: unspecified type Qualified Code(s): D64.9 - Anemia, unspecified Code(s): D64.9 - Anemia, unspecified Status: Acute Plan Patient has small-bowel obstruction but is relatively asymptomatic at this time. She is not having any further nausea vomiting and her abdominal pain has resolved. She is currently NPO except for ice chips until evaluated by General surgery. Will continue gentle IV fluid hydration as the patient does appear mildly dehydrated given presence of ketones in her urine. Will repeat BMP and CBC with a.m. labs. The patient also has evidence of anemia with no known prior history of anemia. Will check ferritin, TIBC panel B12, folic acid and TSH with a.m. labs. Will substitute the patient's oral levothyroxine dosing for IV dosing while NPO. Patient has been admitted as observation status. MEDICAL DECISION MAKING NARRATIVE -Spoke with the ED provider in detail regarding patient's evaluation, workup and management -Patient seen and examined at bedside -Collaborated with patient's nurse at the bedside in detail and addressed all concerns -Labs, electrolytes, radiology, investigations and test results personally reviewed and interpreted unless otherwise specified -ED/Consult/Nursing/Ancilliary notes on the chart reviewed and appreciated -applicable past medical records and labs were reviewed and unless stated otherwise. -Spoke with patient at bedside and diagnosis, plan of care was discussed and questions answered. Hospitalist [facility] Advance Care Plan I have confirmed that the patient's Advanced Care Plan is present, code status is documented, or surrogate decision maker is listed in patient medical record.: Yes Medication Reconciliation I have utilized all available resources to obtain, update and review the patients current medications (includes all prescriptions, OTC, herbals, cannabis, and nutritional supplements).: Yes
[2025-04-19] MEDS: LEVOTHYROXINE SODIUM INJ 100 MCG/5 ML VIAL 37.5 MCG IV PUSH (05:46)
[2025-04-19 06:00] VITALS: BP 108/52; PULSE 69; RESP 18; TEMP 36.7; O2SAT 96
[2025-04-19 06:23] LABS: Hematocrit 28.9 % (37.0-47.0); Hemoglobin 9.2 g/dL (12.0-15.0); Mean Corpuscular HGB Conc 31.8 g/dl (32-36); Mean Corpuscular Hemoglobin 28.5 pg (26-34); Mean Corpuscular Volume 89.5 fl (80-100); Platelet Count Result 252 k/mm3 (150-375); Red Blood Count 3.23 M/mm3 (4.2-5.4); White Blood Count 5.2 K/mm3 (4.5-10.0)
[2025-04-19 06:52] LABS: Iron 22 ug/dL (37-170)
[2025-04-19 06:54] LABS: Anion Gap 2 mmol/L (4-12); Blood Urea Nitrogen 15 mg/dL (7-17); Calcium 8.2 mg/dL (8.4-10.2); Carbon Dioxide 25 mmol/L (22-30); Chloride 108 mmol/L (98-107); Estimated CRCL calculation 43 ml/min; Estimated Glomerular Filt Rate > 60; Glucose 68 mg/dL (65-110); Potassium 3.8 mmol/L (3.4-5.0); Sodium 135 mmol/L (137-145)
[2025-04-19 07:01] LABS: Percent Iron Saturation 8 % (20-50)
[2025-04-19 07:29] LABS: Thyroid Stimulating Hormone 2.070 uIU/mL (0.465-4.680)
[2025-04-19 07:34] LABS: Ferritin 28.20 ng/mL (11.1-264)
[2025-04-19 08:04] LABS: Vitamin B12 > 1000.0 pg/mL (239-931)
[2025-04-19] MEDS: ENOXAPARIN 40 MG/0.4 ML SYRINGE SUB-Q (09:17)
--- NOTE | 2025-04-19 10:24 | PM.CNGS ---
Assessment and Plan Assessment and plan (1) SBO (small bowel obstruction): Code(s): K56.609 - Unspecified intestinal obstruction, unspecified as to partial versus complete obstruction Status: Acute Assessment and Plan: CT scan showed possible small bowel obstruction dilated loops of small bowel. No obvious transition point. The patient was having diarrhea through the weekend and into yesterday. She has not had any diarrhea since admission, but also is not having any abdominal pain, nausea, or vomiting. Her abdominal exam is completely benign. Her symptoms started with vomiting and diarrhea, and clinically this is more consistent with enterocolitis rather than a true bowel obstruction. There is no indication for any surgical intervention at this time. I will start advancing her diet as tolerated and order plain films to reassess. Continue to monitor with serial abdominal exams and repeat imaging if needed. If she develops more obstructive symptoms, then we could consider further evaluation with small bowel follow through, but will monitor for now. (2) Enterocolitis: Code(s): K52.9 - Noninfective gastroenteritis and colitis, unspecified Status: Acute Assessment and Plan: Seems to be resolving. Continue medical management. (3) Anemia: Qualifiers: Anemia type: unspecified type Qualified Code(s): D64.9 - Anemia, unspecified Code(s): D64.9 - Anemia, unspecified Status: Acute Plan I have discussed the patient's case, recommendations, and treatment plan with Dr. Burton. History of Present Illness Consult details Consult date: 04/19/25 Reason for consult: other (Small-bowel obstruction) Requesting physician: Katiana Burgos, DO Narrative: This is an 84-year-old female with history of hyperlipidemia, hypothyroidism, and hereditary ataxia, who we have been asked to see in surgical consultation for a small-bowel obstruction. She has had worsening ataxia over the past few months and reports having falls at home. She was previously using a walker to get around and recently is requiring an electric scooter. She has been dealing with intermittent constipation and diarrhea over the past few months as well. Her PCP has been managing this issue and she has been taking MiraLax as needed. She reports trying multiple modalities to help with her constipation. On Friday, she woke up feeling nauseated and had taken her morning MiraLax. Shortly after eating half a bagel, she began vomiting. She vomited all day and went to see her PCP. They recommended she go to the ER at [facility], but her friend was her transportation and she decided to go back home. She developed diarrhea that evening and reports innumerable amounts of diarrhea over the next 2 days. She denies having any abdominal pain and did not have any more vomiting after Friday. Although, with her persistent diarrhea, she came into the ED for evaluation. Labs showed a normal white blood cell count and lactic acid was normal. CT scan of the abdomen and pelvis showed moderately dilated loops of small bowel suggesting possible small bowel obstruction, and mild wall thickening of the proximal colon and cecum, and distended urinary bladder. She was admitted to the hospitalist service. NG tube was deferred. She denies any flatus or bowel movements since being in the hospital, but had diarrhea yesterday morning. She denies any abdominal pain, nausea, or vomiting since admission. She appears comfortable. Her only previous abdominal surgery was a total abdominal hysterectomy. Denies a history of small-bowel obstructions. Review of Systems Review of Systems: All systems reviewed & are unremarkable except as noted in HPI and below PMFSH Past Medical History Medical History Mitral valve prolapse Allergic rhinitis Hereditary ataxia Hypothyroidism Hyperlipidemia Surgical History Surgical History Status post cataract extraction of both eyes with insertion of intraocular lens History of total abdominal hysterectomy and bilateral salpingo-oophorectomy (1990) Uterine fibroid Family History Family History Father Acute myocardial infarction Social History Social History Social History: Patient is . She lives in [place] [facility] her lives in [facility]. They have been for 52 years and have 1 son. She is a lifelong nonsmoker and does not drink alcohol or use illicit substances. She requires wheelchair for mobility. 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 Code status: DNR/DNI per patient request Healthcare power of research attorney: Jhony (son) Smoking status: Never smoker Alcohol intake: never Substance use: never Lack of Transportation: No Lack of Food: Never True Current Housing: Decline to Answer Concerned About Future Housing: No Difficulty Paying Gas/Electric Bills: No Difficulty Paying for Meds: No Currently Unemployed: No Education: High School Diploma/GED Difficulty w/ Childcare or Family Care: No Gender identity (if verbalized by the patient): Female Spiritual care concerns: No Meds Home Medications and Allergies Home Medications ?Medication ?Instructions ?Recorded ?Confirmed ?Type fluticasone propionate 50 1 spray intranasal DAILY 05/11/20 04/18/25 History mcg/actuation nasal spray,suspension simvastatin 40 mg tablet 40 mg PO QPM 05/11/20 04/18/25 History aspirin 81 mg tablet,delayed 81 mg PO DAILY 04/18/25 04/18/25 History release (Adult Low Dose Aspirin) levothyroxine 75 mcg tablet 75 mcg PO DAILY 04/18/25 04/18/25 History Allergies Allergy/AdvReac Type Severity Reaction Status Date / Time erythromycin base Allergy Mild Abdominal Verified 04/18/25 21:27 Pain Vital Signs Vital Signs - 24 hr 04/18/25 16:05 04/18/25 17:55 04/18/25 19:47 Temperature 97.9 F Pulse Rate 78 90 73 Respiratory Rate 16 15 14 Blood Pressure 117/67 123/62 131/67 Pulse Oximetry 96 100 100 Oxygen Delivery Room Air Room Air 04/18/25 19:53 04/18/25 20:59 04/18/25 22:00 Temperature 97.8 F 98.3 F Pulse Rate 66 70 Respiratory Rate 16 20 Blood Pressure 122/69 126/75 Pulse Oximetry 100 99 Oxygen Delivery 04/19/25 06:00 Temperature 98.1 F Pulse Rate 69 Respiratory Rate 18 Blood Pressure 108/52 L Pulse Oximetry 96 Oxygen Delivery Exam Const: General: comfortable and no acute distress Nutritional Appearance: thin Orientation/consciousness: patient oriented x3 HENMT: Head: normocephalic and atraumatic Ears: hearing grossly normal bilaterally Mouth: Yes moist mucous membranes Eyes: General: appearance normal, both eyes and all related structures Pupils: Equal, round and reactive pupils present Neck: Neck: normal visual inspection and full ROM Resp: Effort & Inspection: no respiratory distress Auscultation: clear to auscultation bilaterally Cardio: Rate: regular rate Rhythm: regular rhythm Peripheral pulses: Peripheral pulses 2+ throughout GI: Inspection: scar (midline lower abd scar) and other (mildly distended) GI Palp: Yes Soft to palpation, No Tenderness to palpation present (GI), No Guarding due to palpation present (GI), No Hernia present, No Palpable mass present and No Rebound tenderness present Percussion: Yes normal to percussion Auscultation: Hypoactive bowel sounds present Rectal Exam: deferred Skin: General skin exam: normal color Neuro: General: moves all extremities and no focal motor deficits Speech: normal speech Motor exam (neuro): 5/5 motor strength present throughout Extrem: General: normal to inspection and no edema Psych: Mental Status: mental status grossly normal Attitude: cooperative Insight: Good insight present (Psych) Judgement: Good judgement present (Psych) Results Labs 04/19/25 06:06 04/19/25 06:06 Labs: Abnormal lab results 04/18/25 04/18/25 04/19/25 Range/Units 18:01 19:30 06:06 RBC 3.73 L 3.23 L (4.2-5.4) M/mm3 Hgb 10.6 L 9.2 L (12.0-15.0) g/dL Hct 32.8 L 28.9 L (37.0-47.0) % MCHC 31.8 L (32-36) g/dl RDW 15.0 H 14.8 H (11.5-14.5) % Lymph % (Auto) 16.4 L (18.3-44.2) % [place] % (Auto) 14.0 H (2.6-8.5) % [place] # (Auto) 0.8 H (0.1-0.6) K/mm3 Sodium 134 L 135 L (137-145) mmol/L Chloride 108 H (98-107) mmol/L Anion Gap 3 L 2 L (4-12) mmol/L BUN 18 H (7-17) mg/dL Calcium 8.2 L (8.4-10.2) mg/dL Iron 22 L (37-170) ug/dL % Saturation 8 L (20-50) % Vitamin B12 > 1000.0 H (239-931) pg/mL Folate > 20.0 H (2.76->20) ng/mL Urine Ketones Trace H (Negative) mg/dL Leukocyte Esterase Rfl Trace H (Negative) CHRISTOPHER/UL Diabetes panel 04/18/25 04/19/25 Range/Units 18:01 06:06 Sodium 134 L 135 L (137-145) mmol/L Potassium 3.7 3.8 (3.4-5.0) mmol/L Chloride 102 108 H (98-107) mmol/L Carbon Dioxide 29 25 (22-30) mmol/L BUN 18 H 15 (7-17) mg/dL Creatinine 0.81 0.79 (0.7-1.0) mg/dL Glucose 84 68 (65-110) mg/dL Calcium 9.4 8.2 L (8.4-10.2) mg/dL AST 34 (14-36) U/L ALT 24 (6-35) U/L Alkaline Phosphatase 98 (38-126) U/L Total Protein 7.1 (6.3-8.2) g/dL Albumin 4.2 (3.5-5.1) g/dL Thyroid panel 04/19/25 Range/Units 06:06 TSH 2.070 (0.465-4.680) uIU/mL Calcium panel 04/18/25 04/19/25 Range/Units 18:01 06:06 Calcium 9.4 8.2 L (8.4-10.2) mg/dL Albumin 4.2 (3.5-5.1) g/dL Pituitary panel 04/18/25 04/19/25 Range/Units 18:01 06:06 Sodium 134 L 135 L (137-145) mmol/L Potassium 3.7 3.8 (3.4-5.0) mmol/L Chloride 102 108 H (98-107) mmol/L Carbon Dioxide 29 25 (22-30) mmol/L BUN 18 H 15 (7-17) mg/dL Creatinine 0.81 0.79 (0.7-1.0) mg/dL Glucose 84 68 (65-110) mg/dL Calcium 9.4 8.2 L (8.4-10.2) mg/dL TSH 2.070 (0.465-4.680) uIU/mL Adrenal panel 04/18/25 04/19/25 Range/Units 18:01 06:06 Sodium 134 L 135 L (137-145) mmol/L Potassium 3.7 3.8 (3.4-5.0) mmol/L Chloride 102 108 H (98-107) mmol/L Carbon Dioxide 29 25 (22-30) mmol/L BUN 18 H 15 (7-17) mg/dL Creatinine 0.81 0.79 (0.7-1.0) mg/dL Glucose 84 68 (65-110) mg/dL Calcium 9.4 8.2 L (8.4-10.2) mg/dL Total Bilirubin 0.7 (0.2-1.3) mg/dL AST 34 (14-36) U/L ALT 24 (6-35) U/L Alkaline Phosphatase 98 (38-126) U/L Total Protein 7.1 (6.3-8.2) g/dL Albumin 4.2 (3.5-5.1) g/dL All other labs normal. Imaging Additional studies: ITS Impressions Abdomen/Pelvis CT 04/18/25 18:36 IMPRESSION: 1. Moderately dilated loops of small bowel suggesting evidence of mechanical small bowel obstruction. 2. Mild thickening of the wall of the proximal colon and cecum of indeterminate nature. Correlation with colonoscopy is suggested. 3. Distended urinary bladder.
[2025-04-19] MEDS: IRON SUCROSE COMPLEX 400 MG, IRON SUCROSE COMPLEX 100 MG in SODIUM CHLORIDE 0.9% IV 250 ML 78.57 MG IVPB (10:44)
[2025-04-19] MEDS: SODIUM CHLORIDE 0.9% IV 1,000 ML 75 ML IV CONT (10:48)
--- NOTE | 2025-04-19 13:36 | PM.IMPN2 ---
Assessment and Plan Assessment and Plan (1) SBO (small bowel obstruction): Code(s): K56.609 - Unspecified intestinal obstruction, unspecified as to partial versus complete obstruction Status: Acute (2) Hypothyroidism: Qualifiers: Hypothyroidism type: unspecified Qualified Code(s): E03.9 - Hypothyroidism, unspecified Code(s): E03.9 - Hypothyroidism, unspecified Status: Acute (3) Dehydration: Code(s): E86.0 - Dehydration Status: Acute (4) Distended bladder: Code(s): N32.89 - Other specified disorders of bladder Status: Acute (5) Anemia: Qualifiers: Anemia type: unspecified type Qualified Code(s): D64.9 - Anemia, unspecified Code(s): D64.9 - Anemia, unspecified Status: Acute Plan small-bowel obstruction Nausea vomiting and abd pain resolved CT AP showed moderately dilated loops of small bowel suggesting mechanical small bowel obstruction Gen surgery evaluated and recommended clears patient started on clears monitor iron deficiency anemia Hb 9.2 and Isat 8 and ferritin 28 Started on IV iron 500/1000 monitor H and H Hypothyroidism Continue home levothyroxine DVT prophylaxis on Sq Lovenox Subjective Date/time seen: 04/19/25 13:36 Interval history: Comfortable at bedside Now on clears Review of Systems Review of Systems: 12 systems were reviewed with pertinent positives and negatives per HPI. Except as documented in the HPI, all other systems were reviewed and are negative. Exam Narrative: Weight 56.5 kg BMI 18.9 Const: Other: No acute distress, well-developed well-nourished, appears stated age HENMT: Other: Mucous membranes are moist, no oral pharyngeal erythema, fair dentition Eyes: Other: Pupils are equal and reactive with bilateral lens implants noted, positive conjunctival pallor, no scleral icterus Neck: Other: No JVD, no lymphadenopathy Resp: Other: Lungs are clear to auscultation bilaterally, no increased work of breathing Cardio: Other: Regular rate, regular rhythm, 2+ bilateral radial pedal pulses GI: Other: Soft, nontender, nondistended, positive bowel sounds Skin: Other: Mild pallor, non jaundice Neuro: Other: Alert oriented x4, speech is clear, no facial asymmetry, no localizing neurologic deficits noted during the course of conversation Extrem: Other: No clubbing, cyanosis or edema, moves all extremities equally Psych: Other: Appropriate mood and affect, pleasant and cooperative, judgment and insight intact Objective Data Vital Signs Vital Signs: Vital Signs - 24 hr 04/18/25 16:05 04/18/25 17:55 04/18/25 19:47 Temperature 97.9 F Pulse Rate 78 90 73 Respiratory Rate 16 15 14 Blood Pressure 117/67 123/62 131/67 Pulse Oximetry 96 100 100 Oxygen Delivery Room Air Room Air 04/18/25 19:53 04/18/25 20:59 04/18/25 22:00 Temperature 97.8 F 98.3 F Pulse Rate 66 70 Respiratory Rate 16 20 Blood Pressure 122/69 126/75 Pulse Oximetry 100 99 Oxygen Delivery 04/19/25 06:00 04/19/25 08:00 Temperature 98.1 F Pulse Rate 69 Respiratory Rate 18 Blood Pressure 108/52 L Pulse Oximetry 96 Oxygen Delivery Room Air Intake/Output Intake/Output: Intake & Output 04/16/25 04/17/25 04/18/25 04/19/25 23:59 23:59 23:59 23:59 Intake Total 1000 940 Balance 1000 940 Meds/Results Medications: Active Medications Generic Name Dose Route Start Last Admin Trade Name Freq PRN Reason Stop Dose Admin Enoxaparin Sodium 40 mg 04/19/25 09:00 04/19/25 09:17 Enoxaparin 40 Mg/0.4 Ml Syringe SUB-Q 40 mg DAILY ALBINA Administration Fluticasone Propionate 2 spray 04/19/25 09:00 04/19/25 09:18 Fluticasone Propionate 0.05% Na Spr 16 Gm Btl (*Bkc) NASAL Not Given DAILY ALBINA Sodium Chloride 1,000 mls @ 75 mls/hr 04/18/25 20:25 04/19/25 10:48 Normal Saline Iv IV CONT 75 mls/hr .[id number] ALBINA Administration Levothyroxine Sodium 37.5 mcg 04/19/25 06:30 04/19/25 05:46 Levothyroxine Sodium Inj 100 Mcg/5 Ml Vial IV PUSH 37.5 mcg DAILY@0630 ALBINA Administration Morphine Sulfate 2 mg 04/18/25 20:09 Morphine Sulfate (*Crx) 4 Mg/Ml Inj IV PUSH Q4H PRN Pain Rated 7-10 Ondansetron HCl 4 mg 04/18/25 20:09 Ondansetron Inj 4 Mg/2 Ml Vial IV PUSH Q6H PRN Nausea And Vomiting Radiology Results: ITS Impressions Abdomen/Pelvis CT 04/18/25 18:36 IMPRESSION: 1. Moderately dilated loops of small bowel suggesting evidence of mechanical small bowel obstruction. 2. Mild thickening of the wall of the proximal colon and cecum of indeterminate nature. Correlation with colonoscopy is suggested. 3. Distended urinary bladder. Abdomen X-Ray 04/19/25 11:35 Impression: 1. Ileus versus small bowel obstruction. Small bowel obstruction is favored. Labs Labs: Laboratory Results - last 24 hr 04/18/25 04/18/25 04/18/25 18:01 18:01 19:30 WBC 5.8 RBC 3.73 L Hgb 10.6 L Hct 32.8 L MCV 87.9 MCH 28.4 MCHC 32.3 RDW 15.0 H Plt Count 347 MPV 9.3 Immature Gran % (Auto) 0.2 Neut % (Auto) 67.3 Lymph % (Auto) 16.4 L [place] % (Auto) 14.0 H Eos % (Auto) 1.4 Baso % (Auto) 0.7 Lymph # (Auto) 0.96 [place] # (Auto) 0.8 H Eos # (Auto) 0.1 Baso # (Auto) 0.0 Abs Immat Gran (auto) 0.01 Absolute Neuts (auto) 3.9 Absolute Nucleated RBC 0.000 Nucleated RBC % 0.0 Sodium 134 L Potassium 3.7 Chloride 102 Carbon Dioxide 29 Anion Gap 3 L BUN 18 H Creatinine 0.81 Estim Creat Clear Calc 41 Estimated GFR > 60 Glucose 84 Lactic Acid 0.9 Calcium 9.4 Magnesium 2.2 Iron TIBC % Saturation Ferritin Total Bilirubin 0.7 AST 34 ALT 24 Alkaline Phosphatase 98 Total Protein 7.1 Albumin 4.2 Lipase 37 Cancelled Vitamin B12 Folate TSH Urine Color Yellow Urine Appearance Clear Urine pH 6.5 Ur Specific [place] 1.023 Urine Protein Negative Urine Glucose (UA) Negative Urine Ketones Trace H Ur Blood (Man) Negative Urine Nitrate Negative Urine Bilirubin Negative Urine Urobilinogen 0.2 Add Ur Microanalysis Reviewed Leukocyte Esterase Rfl Trace H Urine RBC 0-2 Urine WBC 0-5 Ur Squamous Epith Cells None seen Urine Bacteria None seen Urine Casts 0-2 04/19/25 06:06 WBC 5.2 RBC 3.23 L Hgb 9.2 L Hct 28.9 L MCV 89.5 MCH 28.5 MCHC 31.8 L RDW 14.8 H Plt Count 252 MPV 9.4 Immature Gran % (Auto) Neut % (Auto) Lymph % (Auto) [place] % (Auto) Eos % (Auto) Baso % (Auto) Lymph # (Auto) [place] # (Auto) Eos # (Auto) Baso # (Auto) Abs Immat Gran (auto) Absolute Neuts (auto) Absolute Nucleated RBC Nucleated RBC % Sodium 135 L Potassium 3.8 Chloride 108 H Carbon Dioxide 25 Anion Gap 2 L BUN 15 Creatinine 0.79 Estim Creat Clear Calc 43 Estimated GFR > 60 Glucose 68 Lactic Acid Calcium 8.2 L Magnesium Iron 22 L TIBC 274 % Saturation 8 L Ferritin 28.20 Total Bilirubin AST ALT Alkaline Phosphatase Total Protein Albumin Lipase Vitamin B12 > 1000.0 H Folate > 20.0 H TSH 2.070 Urine Color Urine Appearance Urine pH Ur Specific [place] Urine Protein Urine Glucose (UA) Urine Ketones Ur Blood (Man) Urine Nitrate Urine Bilirubin Urine Urobilinogen Add Ur Microanalysis Leukocyte Esterase Rfl Urine RBC Urine WBC Ur Squamous Epith Cells Urine Bacteria Urine Casts
[2025-04-19 14:00] VITALS: BP 112/53; PULSE 71; RESP 18; TEMP 36.8; O2SAT 97
[2025-04-19 19:59] VITALS: BP 107/67; PULSE 77; RESP 18; TEMP 37; O2SAT 96
[2025-04-20 05:06] VITALS: BP 110/40; PULSE 61; RESP 16; TEMP 36.3; O2SAT 94
[2025-04-20] MEDS: LEVOTHYROXINE SODIUM INJ 100 MCG/5 ML VIAL 37.5 MCG IV PUSH (05:35)
[2025-04-20 08:40] LABS: Hematocrit 29.3 % (37.0-47.0); Hemoglobin 9.2 g/dL (12.0-15.0); Immature Granulocyte Percent A 0.4 % (0-0.5); Lymphocytes Absolute Auto 1.08 K/mm3 (0.9-3.2); Mean Corpuscular HGB Conc 31.4 g/dl (32-36); Mean Corpuscular Hemoglobin 27.9 pg (26-34); Mean Corpuscular Volume 88.8 fl (80-100); Nucleated Red Blood Cells Absolute Auto 0.000 K/mm3 (0.0-0.012); Nucleated Red Blood Cells Perc 0.0 % (0.0-0.2); Platelet Count Result 291 k/mm3 (150-375); Red Blood Count 3.30 M/mm3 (4.2-5.4); White Blood Count 6.7 K/mm3 (4.5-10.0)
[2025-04-20 09:00] LABS: Alanine Aminotransferase 13 U/L (6-35); Albumin Level 3.1 g/dL (3.5-5.1); Alkaline Phosphatase 98 U/L (38-126); Anion Gap 0 mmol/L (4-12); Aspartate Amino Transferase 25 U/L (14-36); Bilirubin,Total 0.4 mg/dL (0.2-1.3); Blood Urea Nitrogen 7 mg/dL (7-17); Calcium 8.5 mg/dL (8.4-10.2); Carbon Dioxide 28 mmol/L (22-30); Chloride 109 mmol/L (98-107); Estimated CRCL calculation 47 ml/min; Estimated Glomerular Filt Rate > 60; Glucose 76 mg/dL (65-110); Magnesium 2.1 mg/dL (1.6-2.3); Potassium 3.8 mmol/L (3.4-5.0); Sodium 137 mmol/L (137-145); Total Protein 5.6 g/dL (6.3-8.2)
[2025-04-20] MEDS: IRON SUCROSE COMPLEX 400 MG, IRON SUCROSE COMPLEX 100 MG in SODIUM CHLORIDE 0.9% IV 250 ML 78.57 MG IVPB (09:03)
[2025-04-20] MEDS: ENOXAPARIN 40 MG/0.4 ML SYRINGE SUB-Q (09:03)
--- NOTE | 2025-04-20 11:37 | P.PNGS_ITS ---
Progress Note: A&P Assessment and Plan (1) SBO (small bowel obstruction): Code(s): K56.609 - Unspecified intestinal obstruction, unspecified as to partial versus complete obstruction Status: Acute Assessment and Plan: * Unlikely to be a SBO, more likely enteritis/ileus. * Clinicaly no signs of a small bowel obstruction. Bowels are moving * Will advance to a solid diet and patient can d/c if tolerating solid foods (2) Enterocolitis: Code(s): K52.9 - Noninfective gastroenteritis and colitis, unspecified Status: Acute Assessment and Plan: * Improving, diarrhea resolved. Having slightly more formed BMs. Plan I have discussed the patient's case, recommendations, and treatment plan with Dr. Burton. Subjective Subjective Date/Time Seen: 04/20/25 11:37 Patient reports: no new complaints, feels better, tolerating liquids well, flatus and bowel movement Interval history: Patient denies abdominal pain, nausea, or vomiting. She has had 2 bowel movements and is passing flatus. Tolerating full liquids. Exam Const: General: comfortable and no acute distress Orientation/consciousness: patient oriented x3 GI: Inspection: non-distended GI Palp: Yes Soft to palpation, No Tenderness to palpation present (GI), No Guarding due to palpation present (GI) and No Rebound tenderness present Auscultation: normal bowel sounds Objective Data Vital Signs Vital Signs: Vital Signs - 24 hr 04/19/25 14:00 04/19/25 19:59 04/20/25 05:06 Temperature 98.3 F 98.6 F 97.4 F L Pulse Rate 71 77 61 Respiratory Rate 18 18 16 Blood Pressure 112/53 L 107/67 110/40 L Pulse Oximetry 97 96 94 Oxygen Delivery 04/20/25 08:00 04/20/25 09:40 Temperature Pulse Rate Respiratory Rate Blood Pressure Pulse Oximetry Oxygen Delivery Room Air Room Air Intake/Output Intake/Output: Intake & Output 04/17/25 04/18/25 04/19/25 04/20/25 23:59 23:59 23:59 23:59 Intake Total 1000 2222.5 640 Balance 1000 2222.5 640 Meds/Results Medications: Active Medications Generic Name Dose Route Start Last Admin Trade Name Freq PRN Reason Stop Dose Admin Enoxaparin Sodium 40 mg 04/19/25 09:00 04/20/25 09:03 Enoxaparin 40 Mg/0.4 Ml Syringe SUB-Q 40 mg DAILY ALBINA Administration Fluticasone Propionate 2 spray 04/19/25 09:00 04/20/25 09:02 Fluticasone Propionate 0.05% Na Spr 16 Gm Btl (*Bkc) NASAL Not Given DAILY [facility] Iron Sucrose 400 mg/ Iron 275 mls @ 78.571 mls/hr 04/20/25 08:15 04/20/25 09:03 Sucrose 100 mg/ Sodium IVPB 04/20/25 11:44 78.57 mls/hr Chloride ONCE ONE Administration Levothyroxine Sodium 37.5 mcg 04/19/25 06:30 04/20/25 05:35 Levothyroxine Sodium Inj 100 Mcg/5 Ml Vial IV PUSH 37.5 mcg DAILY@0630 [facility] Administration Morphine Sulfate 2 mg 04/18/25 20:09 Morphine Sulfate (*Crx) 4 Mg/Ml Inj IV PUSH Q4H PRN Pain Rated 7-10 Ondansetron HCl 4 mg 04/18/25 20:09 Ondansetron Inj 4 Mg/2 Ml Vial IV PUSH Q6H PRN Nausea And Vomiting Radiology Results: ITS Impressions Abdomen/Pelvis CT 04/18/25 18:36 IMPRESSION: 1. Moderately dilated loops of small bowel suggesting evidence of mechanical small bowel obstruction. 2. Mild thickening of the wall of the proximal colon and cecum of indeterminate nature. Correlation with colonoscopy is suggested. 3. Distended urinary bladder. Abdomen X-Ray 04/19/25 11:35 Impression: 1. Ileus versus small bowel obstruction. Small bowel obstruction is favored. Labs Labs: Laboratory Results - last 24 hr 04/20/25 07:50 WBC 6.7 RBC 3.30 L Hgb 9.2 L Hct 29.3 L MCV 88.8 MCH 27.9 MCHC 31.4 L RDW 14.9 H Plt Count 291 MPV 9.9 Immature Gran % (Auto) 0.4 Neut % (Auto) 70.7 Lymph % (Auto) 16.0 L [place] % (Auto) 10.5 H Eos % (Auto) 2.1 Baso % (Auto) 0.3 Lymph # (Auto) 1.08 [place] # (Auto) 0.7 H Eos # (Auto) 0.1 Baso # (Auto) 0.0 Abs Immat Gran (auto) 0.03 Absolute Neuts (auto) 4.8 Absolute Nucleated RBC 0.000 Nucleated RBC % 0.0 Sodium 137 Potassium 3.8 Chloride 109 H Carbon Dioxide 28 Anion Gap 0 L BUN 7 D Creatinine 0.71 Estim Creat Clear Calc 47 Estimated GFR > 60 Glucose 76 Calcium 8.5 Magnesium 2.1 Total Bilirubin 0.4 AST 25 ALT 13 Alkaline Phosphatase 98 Total Protein 5.6 L Albumin 3.1 L
--- NOTE | 2025-04-20 11:51 | PM.DS ---
DS: Admitting Diagnosis Discharge Date 04/20/2025 Admitting Diagnosis Diarrhea and abdominal pain for 4 days DS: Discharge Diagnosis Discharge Diagnosis (1) SBO (small bowel obstruction): Code(s): K56.609 - Unspecified intestinal obstruction, unspecified as to partial versus complete obstruction Status: Acute (2) Enterocolitis: Code(s): K52.9 - Noninfective gastroenteritis and colitis, unspecified Status: Acute DS: Summary Hospital Course Hospital Course: 84-year-old female with a past medical history of hypothyroidism, hyperlipidemia, hereditary ataxia and prior hysterectomy with bilateral salpingo oophorectomy who presented to the ER with abdominal pain, diarrhea and nausea Patient was managed for SBO and enterocolitis, CT AP showed moderately dilated loops of small bowel suggesting mechanical small bowel obstruction, and mild thickening of the wall of the proximal colon, gen surgery was consulted, patient was eventually transitioned to clears, full liquid diet, and tolerated regular diet. Diarrhea resolved without antibiotics. Continue home meds F/u with PCP in 3-5 days F/u with Gen surgery as instructed Time Spent with Patient Time attestation: Total time spent providing and/or coordinating discharge services: DS: Data Data Completed and Pending Labs on day of discharge: Labs from last 24 hours 04/20/25 07:50 WBC 6.7 RBC 3.30 L Hgb 9.2 L Hct 29.3 L MCV 88.8 MCH 27.9 MCHC 31.4 L RDW 14.9 H Plt Count 291 MPV 9.9 Immature Gran % (Auto) 0.4 Neut % (Auto) 70.7 Lymph % (Auto) 16.0 L [place] % (Auto) 10.5 H Eos % (Auto) 2.1 Baso % (Auto) 0.3 Lymph # (Auto) 1.08 [place] # (Auto) 0.7 H Eos # (Auto) 0.1 Baso # (Auto) 0.0 Abs Immat Gran (auto) 0.03 Absolute Neuts (auto) 4.8 Absolute Nucleated RBC 0.000 Nucleated RBC % 0.0 Sodium 137 Potassium 3.8 Chloride 109 H Carbon Dioxide 28 Anion Gap 0 L BUN 7 D Creatinine 0.71 Estim Creat Clear Calc 47 Estimated GFR > 60 Glucose 76 Calcium 8.5 Magnesium 2.1 Total Bilirubin 0.4 AST 25 ALT 13 Alkaline Phosphatase 98 Total Protein 5.6 L Albumin 3.1 L Discharge Plan Discharge Attending physician on discharge: Garcia Morfin Consulting providers: Carlo Geronimo; Hillary Burton; Garcia Morfin Discharging Clinician: Garcia Morfin Anticipated Discharge Date/Time: 04/20/25 11:48 Patient Disposition: Home Activity: as tolerated Diet: as tolerated and regular Patient Instructions: Antibiotic Form Patient Language: [place]ian Stand Alone Forms: General Discharge Information Follow-up/Referrals: Hillary Burton MD [Physician, General Surgery] Referral Note: F/u with Gen Surgery as instructed Katerin,Jasbir Blas MD [Primary Care Provider, Unknown] Referral Note: F/u with PCP in 3-5 days Discharge Medications: Continued simvastatin 40 mg tablet 40 mg PO QPM fluticasone propionate 50 mcg/actuation spray,suspension 1 spray INTRANASAL DAILY levothyroxine 75 mcg tablet 75 mcg PO DAILY aspirin [Adult Low Dose Aspirin] 81 mg tablet,delayed release (DR/EC) 81 mg PO DAILY Date of admission: 04/19/25 10:42 Primary Care Provider: KaterinJasbir Admitting Provider: Katiana Burgos Attending physician on admission: Katiana Burgos Condition: Stable
== END 2025-04-20 14:35 | disposition home or self-care (01) | DRG 389 ==
LOC: ANHED 19:10 → ANH3MEDSUR 20:10
PROVIDERS: Admitting Provider Internal Medicine; Emergency Provider Emergency Medicine; PCP Family Medicine; Visit Provider Internal Medicine
DX: K56.609 Unspecified intestinal obstruction, unspecified as to partial versus complete obstruction (principal); G11.9 Hereditary ataxia, unspecified; K52.9 Noninfective gastroenteritis and colitis, unspecified; D50.9 Iron deficiency anemia, unspecified; E03.9 Hypothyroidism, unspecified; E78.5 Hyperlipidemia, unspecified; E86.0 Dehydration; N32.89 Other specified disorders of bladder; Z99.3 Dependence on wheelchair; Z98.41 Cataract extraction status, right eye; Z98.42 Cataract extraction status, left eye; Z96.1 Presence of intraocular lens; Z66 Do not resuscitate; Z79.82 Long term (current) use of aspirin
CPT/HCPCS: 36415; 74018; 74177; 80048; 80053; 81001; 82607; 82728; 82746; 83540; 83550; 83605; 83690; 83735; 84443; 85025; 85027; 96361; 96372; 96374; 97161; 97166; 99285; A9270; G0378; J0650; J1650; J1756; J7030; J7050; J7120; Q9967